=== PATIENT | male | born 1975 | race African-American/Black ===

== ENCOUNTER 2021-07-18 14:43 | Emergency (ER) | payer SELFPAY ==
[~2021-07-18] VITALS: Ht 190.5 cm; Wt 81.6 kg
--- NOTE | 2021-07-18 15:00 | NUR ---
Dr Lacy at the [facility] for [facility].
[2021-07-18] MEDS ORDERED: AMOX-430 PO (15:06)
[2021-07-18] MEDS ORDERED: NEOMY/BACITRA/POLYMYXIN B OINT UD PACKET TP ONE ×2 (15:15→15:16)
[2021-07-18 15:32] VITALS: BP 115/80
--- NOTE | 2021-07-18 15:32 | NUR ---
Patient discharged to home in stable condition. Written and verbal after care instructions given. Patient verbalizes understanding of instructions. Stressed follow up or return to ER for worsening s/s.
== END 2021-07-18 15:32 | disposition home or self-care (01) ==
LOC: ER 14:48
DX: S51.812A Laceration without foreign body of left forearm, initial encounter (principal); S00.81XA Abrasion of other part of head, initial encounter; Y04.1XXA Assault by human bite, initial encounter; Y92.89 Other specified places as the place of occurrence of the external cause
CPT/HCPCS: A4663